=== PATIENT | male | born 1985 | race Caucasian/White ===

== ENCOUNTER 2019-03-15 08:09 | Emergency (ER) | payer MEDICAID, BC ==
[2019-03-15] MEDS: DEXAMETHASONE 10 MG/ML 1 ML INJ IM (09:08)
== END 2019-03-15 09:14 | disposition home or self-care (01) ==
LOC: FTE 09:14
DX: L40.9 Psoriasis, unspecified (principal)
CPT/HCPCS: 96372; 99284-25